=== PATIENT | female | born 1995 | race Caucasian/White ===

== ENCOUNTER 2016-08-21 20:18 | Emergency (ER) | payer BC ==
--- NOTE | 2016-08-21 22:13 | ED ---
I, Darrick,Meg, scribed for Cruz Grey MD on 08/21/16 at 2112 . Throat Pain/Nasal Congestion - HPI Summary HPI Summary: This 21 y/o female presents to ED for acute fever, sore throat, nasal congestion since today AM. Positive RIOS and productive cough. She reports temperature of 101 F at home, and controlled her fever with ibuprofen. Temperature of 99 F is noted at triage. Negative n/v. PMHx includes exercise- induced asthma. - History of Current Complaint Chief Complaint: EDThroatPain Time Seen by Provider: 08/21/16 21:06 Hx Obtained From: Patient Onset/Duration: Sudden Onset Severity: Mild Associated Signs And Symptoms: Positive: Nasal Discharge Cough: Productive - Allergies/Home Medications Allergies/Adverse Reactions: Allergies Allergy/AdvReac Type Severity Reaction Status Date / Time No Known Allergies Allergy Verified 08/21/16 21:46 Home Medications: Home Medications NK [No Home Medications Reported] 08/21/16 [History Confirmed 08/21/16] PMH/Surg Hx/FS Hx/Imm Hx Respiratory History: Reports: Hx Asthma - exercise induced Infectious Disease History: No Infectious Disease History: Denies: Traveled Outside the [place] in Last 30 Days - Family History Known Family History: Negative: Cardiac Disease, Hypertension, Diabetes - Social History Hx Substance Use: No Substance Use Type: Reports: None Hx Tobacco Use: No Smoking Status (MU): Never Smoked Tobacco Review of Systems Positive: Fever - Temperature of 101 F. Currently resolved Positive: Sore Throat, Other - nasal congestion Positive: Cough Negative: Vomiting, Nausea Positive: Headache Negative: Anxious, Depressed All Other Systems Reviewed And Are Negative: Yes Physical Exam Triage Information Reviewed: Yes Vital Signs On Initial Exam: Initial Vitals Temp Pulse Resp BP Pulse Ox 99 F 105 18 144/74 99 08/21/16 20:42 08/21/16 20:42 08/21/16 20:42 08/21/16 20:42 08/21/16 20:42 Vital Signs Reviewed: Yes Appearance: Positive: Well-Appearing, No Pain Distress Skin: Positive: Warm Eyes: Positive: CAITLIN ENT: Positive: Pharyngeal erythema, TMs normal Neck: Positive: Supple Respiratory/Lung Sounds: Positive: Breath Sounds Present Cardiovascular: Positive: RRR Abdomen Description: Positive: Nontender, Soft Bowel Sounds: Positive: Present Musculoskeletal: Positive: Strength/ROM Intact Neurological: Positive: Alert, Oriented to Person Place, Time Psychiatric: Positive: Affect/Mood Appropriate Diagnostics - Vital Signs Vital Signs Temp Pulse Resp BP Pulse Ox 08/21/16 20:42 99 F 105 18 144/74 99 - Laboratory Lab Results: Lab Results 08/21/16 08/21/16 Range/Units 21:50 21:59 Influenza A (Rapid) Negative (Negative) Influenza B (Rapid) Negative (Negative) Group A Strep Rapid Negative (Negative) Lab Statement: Any lab studies that have been ordered have been reviewed, and results considered in the medical decision making process. Re-Evaluation - Re-Evaluation First Eval Change: Improved - RESULTS D/W PT EENT Course/Dx - Diagnoses Provider Diagnoses: Upper respiratory infection, Viral syndrome Discharge - Discharge Plan Condition: Improved Disposition: HOME Patient Education Materials: Upper Respiratory Infection (ED), Viral Syndrome ( ED) Referrals: Celina OSULLIVAN,Vickey Abrams [Primary Care Provider] - 2 Days The documentation as recorded by the Darrick marrero Soohyun accurately reflects the service I personally performed and the decisions made by , Cruz Grey MD.
[2016-08-21 22:34] VITALS: BP 116/78
== END 2016-08-21 22:33 | disposition home or self-care (01) ==
LOC: ED 20:18
DX: J06.9 Acute upper respiratory infection, unspecified (principal); B34.9 Viral infection, unspecified; J02.9 Acute pharyngitis, unspecified; F32.9 Major depressive disorder, single episode, unspecified; R09.81 Nasal congestion; R50.9 Fever, unspecified; R05 Cough; R51 Headache
CPT/HCPCS: 87502; 87651; 99282

== ENCOUNTER 2016-09-02 20:43 | Emergency (ER) | payer BC ==
[2016-09-02] MEDS ORDERED: NS 0.9% 1000 ML* 1,000 ML IV ONE (21:11)
[2016-09-02] MEDS ORDERED: Ketorolac INJ* 30 MG/ML 1 ML VIAL IV PUSH ONE (21:30)
[2016-09-02] MEDS ORDERED: Ondansetron INJ* 2 MG/ML VIAL IV ONE (21:30)
[2016-09-02 21:33] LABS: Hematocrit 37 % (35-47); Hemoglobin 12.7 g/dl (12.0-16.0); Mean Corpuscular HGB Conc 35 g/dl (31-36); Mean Corpuscular Hemoglobin 29 pg (27-31); Mean Corpuscular Volume 83 fL (80-97); Mean Platelet Volume 8 um3 (7.4-10.4); Red Blood Count 4.44 10^6/ul (4.0-5.4); Red Cell Distribution Width 13 % (10.5-15); White Blood Count 20.7 10^3/ul (3.5-10.8)
--- NOTE | 2016-09-02 21:38 | ED ---
HPI Febrile Illness - HPI Summary HPI Summary: 21F presents with n/v/d and syncopal episode today. She states she felt cold and then she took a shower than passed out. She states she does not have a history of passing out. She states that three days ago she had increased frequency. She thought she had a UTI. She states that she has occasionally right sided flank pain but does not have it currently. She admits to a fever when she arrived here. She states that she had a cough two weeks ago and was diagnosed with an upper respiratory infection but that has since resolved. She denies any nasal discharge, sore throat, or ear pain. She denies any vaginal discharge or history of STDs. She denies any trauma with the passing out. - History of Current Complaint Chief Complaint: EDGeneral Time Seen by Provider: 09/02/16 21:11 Pain Intensity: 96 - Allergy/Home Medications Allergies/Adverse Reactions: Allergies Allergy/AdvReac Type Severity Reaction Status Date / Time No Known Allergies Allergy Verified 08/21/16 21:46 PMH/Surg Hx/FS Hx/Imm Hx Cardiovascular History: Denies: Hx Hypertension Respiratory History: Reports: Hx Asthma - exercise induced Infectious Disease History: No Infectious Disease History: Denies: Traveled Outside the [place] in Last 30 Days - Family History Known Family History: Negative: Cardiac Disease, Hypertension, Diabetes - Social History Alcohol Use: Rare Hx Substance Use: No Substance Use Type: Reports: None Hx Tobacco Use: No Smoking Status (MU): Never Smoked Tobacco Review of Systems Positive: Fever Negative: Chest Pain Negative: Shortness Of Breath, Cough Positive: Vomiting, Diarrhea, Nausea. Negative: Abdominal Pain Positive: frequency, flank pain - not currently Positive: Syncope All Other Systems Reviewed And Are Negative: Yes Physical Exam Triage Information Reviewed: Yes Vital Signs On Initial Exam: Initial Vitals Temp Pulse Resp BP Pulse Ox 101.6 F 127 15 136/82 96 09/02/16 20:47 09/02/16 20:47 09/02/16 20:47 09/02/16 20:47 09/02/16 20:47 Vital Signs Reviewed: Yes Appearance: Positive: Well-Appearing Skin: Positive: Warm, Dry Head/Face: Positive: Normal Head/Face Inspection Eyes: Positive: Normal, Conjunctiva Clear ENT: Positive: Normal ENT inspection, Pharynx normal, TMs normal Respiratory/Lung Sounds: Positive: Clear to Auscultation, Breath Sounds Present Cardiovascular: Positive: Normal, RRR Abdomen Description: Positive: Nontender, Soft. Negative: CVA Tenderness (R), CVA Tenderness (L) Bowel Sounds: Positive: Present - Alissa Coma Scale Coma Scale Total: 15 Diagnostics - Vital Signs Vital Signs Temp Pulse Resp BP Pulse Ox 09/02/16 21:02 128 20 96 09/02/16 20:47 101.6 F 127 15 136/82 96 - Laboratory Result Diagrams: 09/02/16 21:24 09/02/16 21:24 Lab Statement: Any lab studies that have been ordered have been reviewed, and results considered in the medical decision making process. - Ultrasound No standard instances Ultrasound Interpretation: Positive (See Comments) - IMPRESSION: MILD RIGHT HYDRONEPHROSIS. Ultrasound Interpretation Completed By: Radiologist - EKG No standard instances Cardiac Rate: NL EKG Rhythm: Sinus Rhythm Re-Evaluation - Re-Evaluation First Eval Re-Evaluation Time: 00:10 Comment: mom states needs to be admitted due to syncope Second Eval Re-Evaluation Time: 01:12 Change: Improved Comment: patient is feeling much better, and would like to be d/c home Course/Dx - Course Course Of Treatment: 21F presents with n/v/d and syncopal episode today. she states she has had UTI symptoms for the past 3 days. states rest of symptoms started out of blue today. states that felt cold and then went into shower and pass out. denies any abdominal pain or flank pain currently. has had occasionally flank pain in past couple days. when arrived developed a fever. on exam abdomen nontender and no CVA tenderness. due to UTI symptoms and fever did u/s renal which showed mild hydronephrosis. labs showed UTI. wbc 20 with left shift. lactic normal. gave iv fluids and cipro to treat potential pyelonephritis. when went into room to discuss results patient mom became visible upset that was going to send home because states that had 7 syncopal events since arriving here. none of the syncopal events were witness by any ED staff, patient herself stated she has not passed out in a while. explained that she had not failed outpatient therapy for UTI/potential pyelonephritis so would like to send home which patient herself is agreeable to. spoke with dr bess who said give IV antibiotic one dose and get orthostatics and send home. syncopal workup: normal EKG, normal BS, could be related to patient hyperventilating as was at [facility]. is unclear if patient just has uti and gastroenteritis or has pyelonephritis so will treat for pyelo with cipro which will also cover for infectious gastroenteritis. told to return if develops flank pain or if symptoms get worst. patient understands and agrees with plan. - Febrile Illness Differential Diagnoses: Bacteremia, Pyelonephritis, Other: - uti, gastroenteritis - Diagnoses Provider Diagnoses: Syncope, UTI (urinary tract infection), Nausea & vomiting Discharge - Discharge Plan Condition: Stable Disposition: HOME Prescriptions: Ciprofloxacin TAB* [Cipro 500 MG TAB*] 500 mg PO BID #27 tab Ondansetron ODT TAB* [Zofran 4 MG Odt TAB*] 4 mg PO Q6H PRN #15 tab.odt PRN Reason: Nausea Patient Education Materials: Urinary Tract Infection in Children (ED) Referrals: Celina OSULLIVAN,Vickey Abrams [Primary Care Provider] - Additional Instructions: Take antibiotic twice a day for 14 days, first dose given in ED Can take Zofran every 6 hours as needed for nausea Drink small amounts of fluid as tolerated When able to eat follow BRAT diet: Bananas, rice, applesauce, toast Take ibuprofen or Tylenol for fever every 6 hours Follow up with primary within 5 days Return to ED if develop flank pain, cannot stop vomiting, or any new or worsening symptoms
[2016-09-02 21:50] LABS: Albumin 3.2 g/dL (3.2-5.2); BUN/Creatinine Ratio 15.6 (8-20); Calcium 8.8 mg/dL (8.6-10.3); EGFR African American 92.6 (>60); Globulin 3.8 g/dL (2-4); Potassium 3.5 mmol/L (3.5-5.0); Total Bilirubin 0.4 mg/dL (0.2-1.0)
--- NOTE | 2016-09-02 22:30 | RAD ---
INDICATION: Flank pain and urinary tract infection symptoms. COMPARISON: There are no prior studies available for comparison. TECHNIQUE: Multiple real-time images of the kidneys were obtained. FINDINGS: The kidneys are normal in size shape and echogenicity. The right kidney measured 12.4 x 5.6 x 5.5 cm and the left kidney measured 11.2 x 4.7 x 5.5 cm. No focal renal abnormality is seen. There is mild prominence of the right renal calyces and pelvis suggestive of mild hydronephrosis. There are bilateral ureteral jets present within the urinary bladder. IMPRESSION: MILD RIGHT HYDRONEPHROSIS.
[2016-09-02] MEDS: NS 0.9% 1000 ML* 2,000 ML IV ONE (23:28)
[2016-09-02 23:41] LABS: Urine Bacteria 1+ (Absent); Urine Bilirubin Negative (Negative); Urine Glucose Negative (Negative); Urine Nitrite Positive (Negative)
[2016-09-03] MEDS ORDERED: Ciprofloxacin 400MG IVPREMIX(* 400 MG/200 ML BAG IVPB ONE (00:03)
[2016-09-03] MEDS ORDERED: Acetaminophen TAB* 325 MG PO ONE (01:01)
[2016-09-03 01:33] VITALS: BP 109/64
--- NOTE | 2016-09-05 08:50 | PN ---
Progress Note - Progress Note Note: Urine culture grew e. coli. Patient given cipro. nothing further at this time. placed appropriately on abx
--- NOTE | 2016-09-06 07:49 | PN ---
Progress Note - Progress Note Note: Patient was diagnosed with UTI and placed on Cipro. Urine final culture results grew E coli and was resistant to Cipro. Patient was called at 7:48am. Discussed that she needed her antibiotic changed. She was in agreement with this plan. She was still experiencing symptoms. Bactrim was sent to pharmacy. Patient is aware that if symptoms do not improve, persist or worsen to return to ED or follow up with PCP. No further changes needed at this time.
== END 2016-09-03 01:42 | disposition home or self-care (01) ==
LOC: ED 20:43
DX: R55 Syncope and collapse (principal); N39.0 Urinary tract infection, site not specified; R10.84 Generalized abdominal pain; R50.9 Fever, unspecified; R11.2 Nausea with vomiting, unspecified; R19.7 Diarrhea, unspecified
CPT/HCPCS: 36415; 76775; 80053; 81003; 81015; 83605; 83690; 84702; 85025; 86141; 87040; 87077; 87086; 87186; 87502; 93005; 96374; 96375; 99284; A9270-GY; J0744; J1885; J2405

== ENCOUNTER 2016-10-01 18:08 | Emergency (ER) | payer SELFPAY ==
[2016-10-01] MEDS ORDERED: Ondansetron INJ* 2 MG/ML VIAL IV ONE (19:54)
[2016-10-01] MEDS ORDERED: cefTRIAXone(*) 1 GM in NS 0.9% 50 ML* 50 ML IVPB ONE (19:55)
[2016-10-01] MEDS: NS 0.9% 1000 ML* 2,000 ML IV ONE ×2 (20:21→22:12)
[2016-10-01 20:33] LABS: Hematocrit 39 % (35-47); Hemoglobin 13.1 g/dl (12.0-16.0); Mean Corpuscular HGB Conc 34 g/dl (31-36); Mean Corpuscular Hemoglobin 28 pg (27-31); Mean Corpuscular Volume 84 fL (80-97); Mean Platelet Volume 8 um3 (7.4-10.4); Red Blood Count 4.65 10^6/ul (4.0-5.4); Red Cell Distribution Width 13 % (10.5-15); White Blood Count 16.2 10^3/ul (3.5-10.8)
[2016-10-01 20:34] LABS: Add Diff/Slide Review? Slide Review Added; Comments Flag Yes
[2016-10-01 20:49] LABS: ALT 18 U/L (7-52); AST 16 U/L (13-39); Albumin 3.6 g/dL (3.2-5.2); Alkaline Phosphatase 79 U/L (34-104); Anion Gap 12 mmol/L (2-11); BUN/Creatinine Ratio 11.5 (8-20); Blood Urea Nitrogen 12 mg/dL (6-24); C Reactive Protein 350.93 mg/L (< 5.00); CO2 Carbon Dioxide 20 mmol/L (22-32); Calcium 9.5 mg/dL (8.6-10.3); Chloride 100 mmol/L (101-111); EGFR African American 84.5 (>60); EGFR Non-African American 65.7 (>60); Globulin 4.2 g/dL (2-4); Glucose 95 mg/dL (70-100); Lipase 28 U/L (11.0-82.0); Potassium 3.6 mmol/L (3.5-5.0); Sodium 132 mmol/L (133-145); Total Protein 7.8 g/dL (6.4-8.9)
--- NOTE | 2016-10-01 20:59 | RAD ---
INDICATION: RIGHT flank pain. Hematuria. Fever, chills. Near syncope. COMPARISON: September 02, 2016 ultrasound. TECHNIQUE: Multidetector CT images were obtained from the lung bases to the ischial tuberosities. Evaluation of the viscera is limited without IV contrast. Multiplanar reformation. REPORT: Unremarkable visualized inferior thorax. Negative for CT abnormality of the unenhanced liver, gallbladder, spleen, pancreas. Negative for CT abnormality of the upper GI or small bowel. Normal diameter medially extending into cecal appendix is remarkable for a 3 mm appendicolith in the distal segment. Negative for periappendiceal inflammatory change. Negative for ascites, free air, hernias. Normal adrenal glands. Negative for urolithiasis or hydronephrosis. Unremarkable unenhanced kidneys, ureters, and urinary bladder. Unremarkable anteverted uterus and adnexal regions. Negative for lymphadenopathy. Unremarkable dominant retroperitoneal vasculature. Negative for suspicious osseous lesions. IMPRESSION: 1. Negative for urolithiasis or hydronephrosis. 2. Small appendicolith in the distal segment of the appendix without CT stigmata of acute appendicitis. 3. No acute abdominal pelvic pathologic process evident.
[2016-10-01 21:54] LABS: Urine Bacteria 3+ (Absent); Urine Bilirubin Negative (Negative); Urine Glucose Negative (Negative); Urine Nitrite Positive (Negative)
[2016-10-01] MEDS ORDERED: Amoxicillin/Clavulanate TAB* 875 MG PO ONE ×2 (22:33)
--- NOTE | 2016-10-01 22:40 | ED ---
Albert Cabral Alok, scribed for Allen Schneider MD on 10/01/16 at 2010 . HPI Febrile Illness - HPI Summary HPI Summary: 21 y/o female presents to the ED with a fever off and on of 100 F - 102 F for the last 2 days. Pt has been taking Tylenol to reduce her fever with moderate alleviation last taken at 1530 today. Pt also notes lower right sided back pain and right sided abd cramping for the last two days. Pt also notes chills and diaphoresis for the last two days and hematuria today. Pt also adds nausea off and on for the past two days especially when fever is high and is worsened by ingesting food and causes loss of appetite. Pt also notes a RIOS behind the eyes and towards the base of the neck waxing and waning in intensity for the last two days. Pt denies dysuria, changes in urinary urgency/frequency, vaginal discharge, diarrhea, rhinorrhea, sore throat, stiff neck, ear pain, or lightheadedness. Pt last was ill with urinary symptoms a few weeks ago and was prescribed bactrim for a dx of UTI (as well as e.coli in urine) which improved her symptoms temporarily until 2 days ago. PMHx includes hx of migraines and UTI though the patient state that currently her symptoms do not feel like a UTI which are usually accompanied by increased urgency/frequency and dysuria. Pt also notes that she has felt similar symptoms in the past at the end of her menstrual cycle and that her LMP ended 2 days ago with the starting of her current symptoms. Pt denies h/o abd surgeries and has NKDA. - History of Current Complaint Chief Complaint: EDFlankPain Time Seen by Provider: 10/01/16 19:42 Hx Obtained From: Patient Onset/Duration: Started Days Ago, Atraumatic, Still Present Timing: Intermittent Temperature: 101 F - on/off Initial Severity: Moderate Current Severity: Moderate Pain Intensity: 6 Pain Scale Used: 0-10 Numeric Aggravating Factors: Other: - Food aggravates nausea Alleviating Factors: OTC Medicine - Tylenol lowers fever Associated Signs and Symptoms: Chills, Diaphoresis, Headache, Nausea, Other: - Back Pain, abd cramping, loss of appetite - Allergy/Home Medications Allergies/Adverse Reactions: Allergies Allergy/AdvReac Type Severity Reaction Status Date / Time No Known Allergies Allergy Verified 08/21/16 21:46 PMH/Surg Hx/FS Hx/Imm Hx Cardiovascular History: Denies: Hx Hypertension Respiratory History: Reports: Hx Asthma - exercise induced Neurological History: Reports: Hx Migraine Infectious Disease History: No Infectious Disease History: Denies: Traveled Outside the [place] in Last 30 Days - Family History Known Family History: Negative: Cardiac Disease, Hypertension, Diabetes - Social History Occupation: Employed Full-time Alcohol Use: Rare Hx Substance Use: No Substance Use Type: Reports: None Hx Tobacco Use: No Smoking Status (MU): Never Smoked Tobacco Review of Systems Positive: Fever, Chills, Skin Diaphoresis Negative: Sore Throat, Ear Ache, Nasal Discharge Positive: Abdominal Pain, Nausea. Negative: Diarrhea Genitourinary: Other Positive: flank pain, hematuria. Negative: burning Positive: Other - Right lower back pain Positive: Headache All Other Systems Reviewed And Are Negative: Yes Physical Exam Triage Information Reviewed: Yes Vital Signs On Initial Exam: Initial Vitals Temp Pulse Resp BP Pulse Ox 96.9 F 127 20 125/107 100 10/01/16 18:30 10/01/16 18:30 10/01/16 18:30 10/01/16 18:30 10/01/16 18:30 Vital Signs Reviewed: Yes Appearance: Positive: Well-Appearing, No Pain Distress - No acute distress Skin: Positive: Warm, Skin Color Reflects Adequate Perfusion, Dry Head/Face: Positive: Normal Head/Face Inspection Eyes: Positive: EOMI, CAITLNI ENT: Positive: Normal ENT inspection Neck: Positive: Supple, Nontender Respiratory/Lung Sounds: Positive: Clear to Auscultation, Breath Sounds Present Cardiovascular: Positive: Tachycardia Abdomen Description: Positive: Soft, Other: - Right flank minimal tenderness Bowel Sounds: Positive: Present Musculoskeletal: Positive: Other - Right flank minimal tenderness Neurological: Positive: Normal, Sensory/Motor Intact, Alert, Oriented to Person Place, Time Psychiatric: Positive: Affect/Mood Appropriate Diagnostics - Vital Signs Vital Signs Temp Pulse Resp BP Pulse Ox 10/01/16 18:32 98.9 F 129 20 125/107 99 10/01/16 18:30 96.9 F 127 20 125/107 100 - Laboratory Lab Results: Lab Results 10/01/16 10/01/16 10/01/16 Range/Units 20:17 20:17 20:17 WBC 16.2 H (3.5-10.8) 10^3/ul RBC 4.65 (4.0-5.4) 10^6/ul Hgb 13.1 (12.0-16.0) g/dl Hct 39 (35-47) % MCV 84 (80-97) fL MCH 28 (27-31) pg MCHC 34 (31-36) g/dl RDW 13 (10.5-15) % Plt Count 296 (150-450) 10^3/ul MPV 8 (7.4-10.4) um3 Neut % (Auto) 75.6 (38-83) % Lymph % (Auto) 12.2 L (25-47) % Desoto % (Auto) 11.5 H (1-9) % Eos % (Auto) 0.2 (0-6) % Baso % (Auto) 0.5 (0-2) % Absolute Neuts (auto) 12.2 H (1.5-7.7) 10^3/ul Absolute Lymphs (auto) 2.0 (1.0-4.8) 10^3/ul Absolute Monos (auto) 1.9 H (0-0.8) 10^3/ul Absolute Eos (auto) 0 (0-0.6) 10^3/ul Absolute Basos (auto) 0.1 (0-0.2) 10^3/ul Absolute Nucleated RBC 0.01 10^3/ul Nucleated RBC % 0.1 Sodium 132 L (133-145) mmol/L Potassium 3.6 (3.5-5.0) mmol/L Chloride 100 L (101-111) mmol/L Carbon Dioxide 20 L (22-32) mmol/L Anion Gap 12 H (2-11) mmol/L BUN 12 (6-24) mg/dL Creatinine 1.04 H (0.51-0.95) mg/dL Est GFR ( Amer) 84.5 (>60) Est GFR (Non-Af Amer) 65.7 (>60) BUN/Creatinine Ratio 11.5 (8-20) Glucose 95 (70-100) mg/dL Lactic Acid 0.7 (0.5-2.0) mmol/L Calcium 9.5 (8.6-10.3) mg/dL Total Bilirubin 0.70 (0.2-1.0) mg/dL AST 16 (13-39) U/L ALT 18 (7-52) U/L Alkaline Phosphatase 79 (34-104) U/L C-Reactive Protein 350.93 H (< 5.00) mg/L Total Protein 7.8 (6.4-8.9) g/dL Albumin 3.6 (3.2-5.2) g/dL Globulin 4.2 H (2-4) g/dL Albumin/Globulin Ratio 0.9 L (1-3) Lipase 28 (11.0-82.0) U/L Beta HCG, Quant < 0.60 mIU/mL Urine Color Urine Appearance Urine pH (5-9) Ur Specific Halsey (1.010-1.030) Urine Protein (Negative) Urine Ketones (Negative) Urine Blood (Negative) Urine Nitrate (Negative) Urine Bilirubin (Negative) Urine Urobilinogen (Negative) Ur Leukocyte Esterase (Negative) Urine WBC (Auto) (Absent) Urine RBC (Auto) (Absent) Ur Squamous Epith Cells (Absent) Urine Bacteria (Absent) Granular Casts (Absent) Urine Glucose (Negative) 10/01/16 Range/Units 21:25 WBC (3.5-10.8) 10^3/ul RBC (4.0-5.4) 10^6/ul Hgb (12.0-16.0) g/dl Hct (35-47) % MCV (80-97) fL MCH (27-31) pg MCHC (31-36) g/dl RDW (10.5-15) % Plt Count (150-450) 10^3/ul MPV (7.4-10.4) um3 Neut % (Auto) (38-83) % Lymph % (Auto) (25-47) % Desoto % (Auto) (1-9) % Eos % (Auto) (0-6) % Baso % (Auto) (0-2) % Absolute Neuts (auto) (1.5-7.7) 10^3/ul Absolute Lymphs (auto) (1.0-4.8) 10^3/ul Absolute Monos (auto) (0-0.8) 10^3/ul Absolute Eos (auto) (0-0.6) 10^3/ul Absolute Basos (auto) (0-0.2) 10^3/ul Absolute Nucleated RBC 10^3/ul Nucleated RBC % Sodium (133-145) mmol/L Potassium (3.5-5.0) mmol/L Chloride (101-111) mmol/L Carbon Dioxide (22-32) mmol/L Anion Gap (2-11) mmol/L BUN (6-24) mg/dL Creatinine (0.51-0.95) mg/dL Est GFR ( Amer) (>60) Est GFR (Non-Af Amer) (>60) BUN/Creatinine Ratio (8-20) Glucose (70-100) mg/dL Lactic Acid (0.5-2.0) mmol/L Calcium (8.6-10.3) mg/dL Total Bilirubin (0.2-1.0) mg/dL AST (13-39) U/L ALT (7-52) U/L Alkaline Phosphatase (34-104) U/L C-Reactive Protein (< 5.00) mg/L Total Protein (6.4-8.9) g/dL Albumin (3.2-5.2) g/dL Globulin (2-4) g/dL Albumin/Globulin Ratio (1-3) Lipase (11.0-82.0) U/L Beta HCG, Quant mIU/mL Urine Color Mary Jane Urine Appearance Cloudy Urine pH 5.0 (5-9) Ur Specific Halsey 1.028 (1.010-1.030) Urine Protein 3+(>=500 mg/dl) H (Negative) Urine Ketones 2+ H (Negative) Urine Blood 1+ H (Negative) Urine Nitrate Positive H (Negative) Urine Bilirubin Negative (Negative) Urine Urobilinogen Negative (Negative) Ur Leukocyte Esterase Trace H (Negative) Urine WBC (Auto) 2+(11-20/hpf) H (Absent) Urine RBC (Auto) 2+(6-10/hpf) H (Absent) Ur Squamous Epith Cells Present H (Absent) Urine Bacteria 3+ H (Absent) Granular Casts Present H (Absent) Urine Glucose Negative (Negative) Result Diagrams: 10/01/16 20:17 10/01/16 20:17 Lab Statement: Any lab studies that have been ordered have been reviewed, and results considered in the medical decision making process. - CT Abd/Pel CT CT Interpretation: Positive (See Comments) - IMPRESSION: 1. Negative for urolithiasis or hydronephrosis. 2. Small appendicolith in the distal segment of the appendix without CT stigmata of acute appendicitis. 3. No acute abdominal pelvic pathologic process evident. CT Interpretation Completed By: Radiologist Re-Evaluation - Re-Evaluation First Eval Re-Evaluation Time: 22:27 Change: Unchanged Comment: Discussed Lab results with pt Course/Dx - Course Course Of Treatment: NO CRITICAL CARE TIME Assessment/Plan: DISCUSSED RESULTS WITH PATIENT. PRIOR E COLI SUSEPTIBLE TO AUGMENTIN. DISCHARGE HOME STABLE. - Diagnoses Provider Diagnoses: UTI (urinary tract infection), Pyelonephritis Discharge - Discharge Plan Condition: Stable Disposition: HOME Prescriptions: Amoxicillin/Clavulanate TAB* [Augmentin TAB 875*] 875 mg PO BID #18 tab Patient Education Materials: Urinary Tract Infection in Women (ED), Kidney Infection (ED) Referrals: Celina OSULLIVAN,Vickey Abrams [Primary Care Provider] - Additional Instructions: FOLLOW UP WITH YOUR DOCTOR. RETURN TO THE EMERGENCY DEPARTMENT FOR ANY WORSENING OF YOUR CONDITION; PAIN, YOU FEEL ILL, OR QUESTIONS OR CONCERNS. The documentation as recorded by the Albert marrero Alok accurately reflects the service I personally performed and the decisions made by me, Allen Schneider MD.
[2016-10-01 23:27] VITALS: BP 124/64
--- NOTE | 2016-10-03 09:29 | PN ---
Progress Note - Progress Note Note: grew E. Coli Patient placed on Bactrim Will await sensitivities. Nothing further at this time. Chandni Dawson PA-C
--- NOTE | 2016-10-04 14:06 | PN ---
Progress Note - Progress Note Note: Patient placed on Augmentin which is sensitive to. no further action needed.
== END 2016-10-01 23:34 | disposition home or self-care (01) ==
LOC: ED 18:08
DX: N12 Tubulo-interstitial nephritis, not specified as acute or chronic (principal); N39.0 Urinary tract infection, site not specified; Z32.02 Encounter for pregnancy test, result negative
CPT/HCPCS: 36415; 74176; 80053; 81003; 81015; 83605; 83690; 84702; 85025; 86140; 87040; 87077; 87086; 87186; 96361; 96374; 96375; 99283; A9270-GY; J0696; J2405

== ENCOUNTER 2016-11-24 18:16 | Emergency (ER) | payer SELFPAY ==
[2016-11-24 18:20] VITALS: BP 138/107
--- NOTE | 2016-11-24 18:29 | UC ---
Respiratory Complaint HPI - HPI Summary HPI Summary: 4 DAYS OF HARSH BARKING COUGH, ST AND CHILLS. HAS SOME EAR PRESSURE. NO FEVER. NO N/V/D. - History of Current Complaint Chief Complaint: UCRespiratory Stated Complaint: COUGH Time Seen by Provider: 11/24/16 18:29 Hx Obtained From: Patient Hx Last Menstrual Period: 3 WEEKS AGO Onset/Duration: Gradual Onset, Lasting Days, Still Present Timing: Constant Severity Initially: Moderate Severity Currently: Moderate Pain Intensity: 4 Pain Scale Used: 0-10 Numeric Character: Cough: Nonproductive Aggravating Factors: Nothing Alleviating Factors: Nothing Associated Signs And Symptoms: Positive: Chills, URI, Nasal Congestion, Hoarseness. Negative: Fever, Pleuritic Chest Pain, Wheezing, Hemoptysis, Sinus Discomfort - Allergies/Home Medications Allergies/Adverse Reactions: Allergies Allergy/AdvReac Type Severity Reaction Status Date / Time No Known Allergies Allergy Verified 11/24/16 18:20 PMH/Surg Hx/FS Hx/Imm Hx Respiratory History: Asthma - Surgical History Surgical History: None - Family History Known Family History: Negative: Cardiac Disease, Hypertension, Diabetes - Social History Alcohol Use: Rare Substance Use Type: None Smoking Status (MU): Never Smoked Tobacco Review of Systems Constitutional: Chills, Fatigue ENT: Sore Throat, Ear Ache, Nasal Discharge Respiratory: Cough Cardiovascular: Negative Gastrointestinal: Negative All Other Systems Reviewed And Are Negative: Yes Physical Exam Triage Information Reviewed: Yes Appearance: Well-Appearing, No Pain Distress, Well-Nourished Vital Signs: Initial Vital Signs Temp 98 F 11/24/16 18:17 Pulse 87 11/24/16 18:17 Resp 16 11/24/16 18:17 BP 138/107 11/24/16 18:17 Pulse Ox 100 11/24/16 18:17 Vital Signs Reviewed: Yes Eyes: Positive: Conjunctiva Clear ENT: Positive: Hearing grossly normal, Pharynx normal, TMs normal Neck: Positive: Supple, Nontender, No Lymphadenopathy Respiratory Exam: Normal Cardiovascular Exam: Normal Abdomen Description: Positive: Soft Musculoskeletal: Positive: No Edema Neurological: Positive: Alert Psychological: Positive: Age Appropriate Behavior Skin: Negative: rashes UC Diagnostic Evaluation - Laboratory O2 Sat by Pulse Oximetry: 100 Respiratory Course/Dx - Differential Dx/Diagnosis Provider Diagnoses: ACUTE BRONCHITIS Discharge - Discharge Plan Condition: Stable Disposition: HOME Prescriptions: Albuterol HFA INHALER* [Ventolin HFA Inhaler*] 2 puff INH Q4H PRN #1 mdi PRN Reason: Shortness Of Breath predniSONE TAB* [Deltasone TAB*] 50 mg PO DAILY #5 tab Patient Education Materials: Acute Bronchitis (ED) Referrals: Celina OSULLIVAN,Vickey Abrams [Primary Care Provider] - If Needed Additional Instructions: IF YOU ARE NOT IMPROVED AFTER THE COURSE OF STEROIDS AND WITH USING YOUR INHALER PLEASE CALL ME HERE NEXT SUNDAY AFTER 2:30PM AND I CAN TRY TO HELP YOU OVER THE PHONE.
== END 2016-11-24 18:44 | disposition home or self-care (01) ==
LOC: UCEAST 18:16
DX: J20.9 Acute bronchitis, unspecified (principal)
CPT/HCPCS: 99212; G0463

== ENCOUNTER 2017-12-17 10:12 | Emergency (ER) | payer SELFPAY ==
[2017-12-17 10:18] VITALS: BP 120/74
--- NOTE | 2017-12-17 10:25 | UC ---
Skin Complaint HPI - HPI Summary HPI Summary: This patient is a 22 year old F presenting to [facility] c/o sunburn on her back and shoulders. [place] and did not wear an appropriate amount of sun block. The patient rates the pain 8/10 in severity. The pt has no other complaints at this time. - History of Current Complaint Chief Complaint: UCBurn Time Seen by Provider: 12/17/17 10:20 Stated Complaint: SUNBURN Hx Obtained From: Patient Hx Last Menstrual Period: iud Onset/Duration: Lasting Days, Still Present Skin Exposure Onset/Duration: Days Ago Timing: Constant Onset Severity: Severe Current Severity: Severe Pain Intensity: 8 Pain Scale Used: 0-10 Numeric Location: Diffuse Character: Pain, Redness Associated Signs & Symptoms: Positive: Negative - Allergy/Home Medications Allergies/Adverse Reactions: Allergies Allergy/AdvReac Type Severity Reaction Status Date / Time No Known Allergies Allergy Verified 12/17/17 10:19 Review of Systems Constitutional: Negative - fever Skin: Other - sunburn All Other Systems Reviewed And Are Negative: Yes PMH/Surg Hx/FS Hx/Imm Hx Respiratory History: Asthma Other History Of: Negative For: Hepatitis C, Anticoagulant Therapy - Surgical History Surgical History: None - Family History Known Family History: Negative: Cardiac Disease, Hypertension, Diabetes - Social History Lives: With Family Alcohol Use: Rare Substance Use Type: None Smoking Status (MU): Never Smoked Tobacco Physical Exam - Summary Physical Exam Summary: VITAL SIGNS: Reviewed. GENERAL: Patient is a well-developed and nourished female who is lying comfortable in the stretcher. Patient is not in any acute respiratory distress. HEAD AND FACE: Normocephalic EYES: PERRLA, EOMI x 2. EARS: Hearing grossly intact. MOUTH: Oropharynx within normal limits. NECK: Supple, trachea is midline, no adenopathy, no JVD, no carotid bruit. CHEST: Symmetric, no tenderness at palpation LUNGS: Clear to auscultation bilaterally. No wheezing or crackles. CVS: Regular rate and rhythm, S1 and S2 present, no murmurs or gallops appreciated. ABDOMEN: Soft, non-tender. Bowel sounds are normal. No abdominal abnormal pulsations. EXTREMITIES: Full ROM in all major joints, no edema, no cyanosis or clubbing. NEURO: Alert and oriented x 3. No acute neurological deficits. Speech is normal and follows commands. SKIN: sunburn on the shoulders, upper back, and chest Triage Information Reviewed: Yes Vital Signs: Initial Vital Signs Temp 99.4 F 12/17/17 10:13 Pulse 83 12/17/17 10:13 Resp 18 12/17/17 10:13 BP 120/74 12/17/17 10:13 Pulse Ox 100 12/17/17 10:13 Vital Signs Reviewed: Yes Course/Dx - Course Course Of Treatment: Patient is a 22-year-old female with sunburn. The patient was given ibuprofen for the pain. The patient was given an excuse for work for 2 days. Patient will follow-up with primary care physician. Patient is hemodynamically stable alert and oriented 3. - Diagnoses Provider Diagnoses: sunburn Discharge - Sign-Out/Discharge Documenting (check all that apply): Patient Departure - Discharge Plan Condition: Stable Disposition: HOME Prescriptions: Ibuprofen TAB* [Motrin TAB* 800 MG] 800 mg PO ONCE PRN #30 tab PRN Reason: Pain Patient Education Materials: Sunburn (ED) Forms: *Gen. Provider Communication, *Work Release Referrals: [facility] [Outside] No Primary Care Phys,NOPCP [Primary Care Provider] - Additional Instructions: Take medications as instructed and adhere to plan Take Acetaminophen or ibuprofen for pain or fever Increase your fluid intake Return to the or go to the emergency department if symptoms worsen Follow-up with primary care physician in next 2-3 days - Billing Disposition and Condition Condition: STABLE Disposition: Home
== END 2017-12-17 10:35 | disposition home or self-care (01) ==
LOC: UCEAST 10:12
DX: L59.9 Disorder of the skin and subcutaneous tissue related to radiation, unspecified (principal); J45.909 Unspecified asthma, uncomplicated
CPT/HCPCS: 99212; G0463